=== PATIENT | male | born 1965 | race African-American/Black ===

== ENCOUNTER 2017-06-08 13:00 | Inpatient (IN) | payer OTHER ==
[2017-06-08 13:23] VITALS: BMI 29.0
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
[2017-06-08] MEDS ORDERED: LOPERAMIDE HCL 2 MG CAPSULE PO PRN (16:23)
[2017-06-08] MEDS ORDERED: MAGNESIUM CITRATE 300 ML BOTTLE PO PRN (16:23)
[2017-06-08] MEDS ORDERED: NICOTINE POLACRILEX 2 MG GUM BC PRN (16:23)
[2017-06-08] MEDS ORDERED: MAGNESIUM HYDROX 2400MG/30ML ORAL SUSPENSION 30 ML CUP PO PRN (16:23)
[2017-06-08] MEDS ORDERED: chlordiazePOXIDE HCL 25 MG CAPSULE PO PRN (16:23)
[2017-06-08] MEDS ORDERED: hydrOXYzine PAMOATE 50 MG CAPSULE (FP) PO PRN (16:23)
[2017-06-08] MEDS ORDERED: chlordiazePOXIDE HCL 25 MG CAPSULE PO ONE (16:23)
[2017-06-08] MEDS ORDERED: guaiFENesin/D-METHORPHAN HB 10 ML UNIT-DOSE CUPS PO PRN (16:23)
[2017-06-08] MEDS ORDERED: ACETAMINOPHEN 325 MG TABLET (FP) PO PRN (16:23)
[2017-06-08] MEDS ORDERED: IBUPROFEN 400 MG TABLET (FP) PO PRN (16:23)
[2017-06-08] MEDS ORDERED: MAG HYDROX/AL HYDROX/SIMETH 30 ML UNIT-DOSE CUP PO PRN (16:23)
[2017-06-08] MEDS ORDERED: MENTHOL/PHENOL 1 EACH UD MM PRN (16:23)
[2017-06-08] MEDS ORDERED: P-EPHED 60MG/TRIPROLIDI 2.5MG TABLET PO PRN (16:23)
[2017-06-08] MEDS: chlordiazePOXIDE HCL 25 MG CAPSULE PO SCH ×2 (18:16→22:26)
--- NOTE | 2017-06-08 18:51 | PN ---
S Progress Note Note: RECEIVED NURSE INFORMED, PATIENT REFUSES PPD NEEDLE, CHEST X RAY PLACED
[2017-06-08] MEDS: BACITRACIN 0.9 GM PACKET TP SCH (22:26)
[2017-06-08] MEDS: THIAMINE HCL 100 MG TABLET (FP) PO SCH (22:26)
[2017-06-09] MEDS: chlordiazePOXIDE HCL 25 MG CAPSULE PO SCH ×4 (06:07→23:00)
[2017-06-09 09:49] LABS: BASOPHIL 0.7 % (0-2.0); EOSINOPHIL 4.1 % (0-4.5); MCHC 33.1 g/dl (32.0-35.9); MEAN CELL VOLUME 90.6 fl (80-96); NEUTROPHILS 45.6 % (42.8-82.8); PLATELET COUNT 244 K/MM3 (134-434); RDW 14.8 % (11.9-15.9); WHITE BLOOD COUNT 7.7 K/mm3 (4.0-10.0)
[2017-06-09 10:39] LABS: HIV 1 & 2 AB NEGATIVE; HIV 1 AGp24 NEGATIVE
[2017-06-09 10:50] LABS: ALBUMIN 3.4 g/dl (3.4-5.0); ANION GAP 9 (8-16); CO2 25 mmol/L (21-32); GLUCOSE,RANDOM 90 mg/dL (74-106); SGOT/AST 19 U/L (15-37); SGPT/ALT 26 U/L (12-78)
[2017-06-09 10:51] LABS: ALK PHOS 72 U/L (45-117); BILIRUBIN,TOTAL 0.3 mg/dL (0.2-1.0); CALCIUM 8.9 mg/dL (8.5-10.1); TOT PROT 6.6 g/dl (6.4-8.2)
--- NOTE | 2017-06-09 11:07 | PN ---
[facility] CIWA - CIWA Score Nausea/Vomitin Muscle Tremors: 3 Anxiety: 3 Agitation: 2 Paroxysmal Sweats: 1-Minimal Palms Moist Orientation: 0-Oriented Tacttile Disturbances: 1-Very Mild Itch/Numbness Auditory Disturbances: 1-Very Mild Visual Disturbances: 0-None Headache: 2-Mild CIWA-Ar Total Score: 16 BHS Progress Note (SOAP) Subjective: ALERT,IRRITABLE,ANXIOUS,INTERRUPTED SLEEP,PAIN IN THE UPPER MOLAR,GINGIVITIS Objective: 06/09/17 11:04 Vital Signs Temperature 96.8 F L 06/09/17 10:02 Pulse Rate 64 06/09/17 10:02 Respiratory Rate 18 06/09/17 10:02 Blood Pressure 129/75 06/09/17 10:02 O2 Sat by Pulse Oximetry (%) EKG NSR,INVERTED T IN 3,AVF Assessment: 06/09/17 11:05 WITHDRAWAL SYMPTOM Plan: CONTINUE DETOX,PEN VEE K 500 MGS PO Q 6 HRS FOR 7 DAYS,MOTRIN 600 MGS PO Q 6 HRS PRN FOR PAIN AND TOOTHACHE
[2017-06-09] MEDS: BACITRACIN 0.9 GM PACKET TP SCH ×2 (11:26→22:22)
[2017-06-09] MEDS: PRENATAL VITAMINS W/ FOLIC ACID TABLET (FP) PO SCH (11:26)
[2017-06-09] MEDS: PENICILLIN V POTASSIUM 500 MG TABLET PO SCH ×3 (11:27→23:30)
[2017-06-09] MEDS: IBUPROFEN 600 MG TABLET (FP) PO PRN ×2 (11:28→19:09)
--- NOTE | 2017-06-09 14:46 | CONSULT ---
[facility] Psychiatric Consult - Data Date of interview: 06/09/17 Admission source: [facility] Identifying data: Readmission to [facility] for this 51 y/o AA male seeking detox treatment on for alcohol and cocaine dependence.Patient is single, a father of two,domiciled,unemployed and supported on SSI benefits. Substance Abuse History: Patient confirms this [facility] report. Smoking Cessation. Smoking history: Current every day smoker. Have you smoked in the past 12 months: Yes. Aproximately how many cigarettes per day: 20. Cigars Per Day: 0. Hx Chewing Tobacco Use: No. Initiated information on smoking cessation: Yes. 'Breaking Loose' booklet given: 06/08/17 (GIVEN ON UNIT.). - Substance & Tx. History. Hx Alcohol Use: Yes. Hx Substance Use: Yes. Substance Use Type: Alcohol, Cocaine, Heroin. Hx Substance Use Treatment: Yes (Previous detox and Rehab admissions at [facility], 1 Rehab at [facility].). - Substances Abused. Cocaine. Route: Smoking. Frequency: Daily. Amount used: $100. Age of first use: 22. Date of Last Use: 06/07/17. Heroin. Route: Inhalation. Frequency: 3-6 times per week. Amount used: 1/2 bag. Age of first use: 48. Date of Last Use: 06/05/17. Alcohol-vodka/beer. Route: Oral. Frequency: Daily. Amount used: 2 pts./1-2 6 pks. Age of first use: 17. Date of Last Use : 06/08/17 Medical History: Significant for a history of scarlet fever,blindness (right eye ),heart murmur and hypercholesterolemia. Psychiatric History: Patient denies history of psychiatric hospitalizations of OPD care.Mr Ludwig states that he initially sought outpatient psychiatric care at the [facility] in [facility] to address recurrent dysphoria.Got referred to [facility] for detoxification treatment prior to enrollment in their OPD clinic.Patient denies previous treatment with psychotropic medications.No reported history of suicide attempts. Physical/Sexual Abuse/Trauma History: Patient denies. Additional Comment: Urine Drug Screen Results: MARION-Cocaine.Noted. Mental Status Exam - Mental Status Exam Alert and Oriented to: Time, Place, Person Cognitive Function: Good Patient Appearance: Well Groomed Mood: Nervous, Withdrawn, Apprehensive Affect: Mood Congruent Patient Behavior: Fatigued, Appropriate, Cooperative Speech Pattern: Clear Voice Loudness: Normal Thought Process: Intact, Goal Oriented Thought Disorder: Not Present Hallucinations: Denies Suicidal Ideation: Denies Homicidal Ideation: Denies Insight/Judgement: Poor Sleep: Well Appetite: Good Muscle strength/Tone: Normal Gait/Station: Normal Psychiatric Findings - Problem List ([place] 1, 2,3) (1) Alcohol dependence with uncomplicated withdrawal Current Visit: Yes Status: Acute (2) Cocaine dependence, uncomplicated Current Visit: Yes Status: Acute (3) Uncomplicated opioid dependence Current Visit: Yes Status: Acute (4) Nicotine dependence Current Visit: Yes Status: Acute Qualifiers: Nicotine product type: cigarettes Substance use status: uncomplicated Qualified Code(s): F17.210 - Nicotine dependence, cigarettes, uncomplicated (5) Substance induced mood disorder Current Visit: Yes Status: Suspected (6) Blind right eye Current Visit: Yes Status: Chronic (7) History of cardiac murmur Current Visit: Yes Status: Chronic (8) History of hypertension Current Visit: Yes Status: Suspected - Initial Treatment Plan Initial Treatment Plan: Psychoeducation.Detoxification.Observation.
[2017-06-09 17:45] LABS: URINE APPEARANCE SLCLOUDY; URINE BILIRUBIN NEGATIVE (NEGATIVE); URINE BLOOD 2+ (NEGATIVE); URINE COLOR YELLOW; URINE GLUCOSE (UA) NEGATIVE (NEGATIVE); URINE KETONE NEGATIVE (NEGATIVE); URINE NITRITE NEGATIVE (NEGATIVE); URINE PROTEIN NEGATIVE (NEGATIVE); URINE UROBILINOGEN NEGATIVE mg/dL (0.2-1.0)
[2017-06-09 17:54] LABS: URINE LEUK ESTERASE 3+ (NEGATIVE)
[2017-06-09 17:57] LABS: URINE BACTERIA FEW /hpf (NONE SEEN); URINE MUCUS RARE; URINE RBC 2 /hpf (0-3); URINE WBC 145 /hpf (3-5)
[2017-06-09] MEDS: THIAMINE HCL 100 MG TABLET (FP) PO SCH (22:22)
[2017-06-09] MEDS: diphenhydrAMINE HCL 50 MG CAPSULE PO PRN (22:23)
[2017-06-10] MEDS: PENICILLIN V POTASSIUM 500 MG TABLET PO SCH ×4 (05:55→23:19)
[2017-06-10] MEDS: chlordiazePOXIDE HCL 25 MG CAPSULE PO SCH ×2 (05:55→11:07)
[2017-06-10] MEDS: IBUPROFEN 600 MG TABLET (FP) PO PRN (05:56)
[2017-06-10] MEDS: PRENATAL VITAMINS W/ FOLIC ACID TABLET (FP) PO SCH (11:07)
[2017-06-10] MEDS: BACITRACIN 0.9 GM PACKET TP SCH ×2 (11:07→23:16)
--- NOTE | 2017-06-10 11:49 | PN ---
S CIWA - CIWA Score Nausea/Vomitin Muscle Tremors: 2 Anxiety: 3 Agitation: 2 Paroxysmal Sweats: 2 Orientation: 0-Oriented Tacttile Disturbances: 1-Very Mild Itch/Numbness Auditory Disturbances: 0-None Visual Disturbances: 0-None Headache: 2-Mild CIWA-Ar Total Score: 14 S Progress Note (SOAP) Subjective: sleeplessness, shakes,toothache Objective: 06/10/17 11:46 Vital Signs - 8 hr 06/10/17 06/10/17 06:45 10:00 Temperature 96.4 F L 97.2 F L Pulse Rate 53 L 60 Respiratory 18 18 Rate Blood Pressure 153/96 148/97 Laboratory Last Values WBC 7.7 K/mm3 (4.0-10.0) 06/09/17 07:00 RBC 4.74 M/mm3 (4.00-5.60) 06/09/17 07:00 Hgb 14.2 GM/dL (11.7-16.9) 06/09/17 07:00 Hct 43.0 % (35.4-49) 06/09/17 07:00 MCV 90.6 fl (80-96) 06/09/17 07:00 MCH 30.0 pg (25.7-33.7) 06/09/17 07:00 MCHC 33.1 g/dl (32.0-35.9) 06/09/17 07:00 RDW 14.8 % (11.9-15.9) 06/09/17 07:00 Plt Count 244 K/MM3 (134-434) 06/09/17 07:00 MPV 8.0 fl (7.5-11.1) 06/09/17 07:00 Neutrophils % 45.6 % (42.8-82.8) 06/09/17 07:00 Lymphocytes % 34.3 % (8-40) 06/09/17 07:00 Monocytes % 15.3 % (3.8-10.2) H 06/09/17 07:00 Eosinophils % 4.1 % (0-4.5) 06/09/17 07:00 Basophils % 0.7 % (0-2.0) 06/09/17 07:00 Sodium 140 mmol/L (136-145) 06/09/17 07:00 Potassium 3.9 mmol/L (3.5-5.1) 06/09/17 07:00 Chloride 106 mmol/L (98-107) 06/09/17 07:00 Carbon Dioxide 25 mmol/L (21-32) 06/09/17 07:00 Anion Gap 9 (8-16) 06/09/17 07:00 BUN 13 mg/dL (7-18) 06/09/17 07:00 Creatinine 1.0 mg/dL (0.7-1.3) 06/09/17 07:00 Creat Clearance w eGFR > 60 (>60) 06/09/17 07:00 Random Glucose 90 mg/dL (74-106) 06/09/17 07:00 Calcium 8.9 mg/dL (8.5-10.1) 06/09/17 07:00 Total Bilirubin 0.3 mg/dL (0.2-1.0) 06/09/17 07:00 AST 19 U/L (15-37) 06/09/17 07:00 ALT 26 U/L (12-78) 06/09/17 07:00 Alkaline Phosphatase 72 U/L (45-117) 06/09/17 07:00 Total Protein 6.6 g/dl (6.4-8.2) 06/09/17 07:00 Albumin 3.4 g/dl (3.4-5.0) 06/09/17 07:00 Urine Color Yellow 06/08/17 17:00 Urine Appearance Slcloudy 06/08/17 17:00 Urine pH 5.0 (5.0-8.0) 06/08/17 17:00 Ur Specific [place] 1.020 (1.005-1.025) 06/08/17 17:00 Urine Protein Negative (NEGATIVE) 06/08/17 17:00 Urine Glucose (UA) Negative (NEGATIVE) 06/08/17 17:00 Urine Ketones Negative (NEGATIVE) 06/08/17 17:00 Urine Blood 2+ (NEGATIVE) H 06/08/17 17:00 Urine Nitrite Negative (NEGATIVE) 06/08/17 17:00 Urine Bilirubin Negative (NEGATIVE) 06/08/17 17:00 Urine Urobilinogen Negative mg/dL (0.2-1.0) 06/08/17 17:00 Ur Leukocyte Esterase 3+ (NEGATIVE) H 06/08/17 17:00 Urine RBC 2 /hpf (0-3) 06/08/17 17:00 Urine WBC 145 /hpf (3-5) 06/08/17 17:00 Ur Epithelial Cells Rare /hpf (FEW) 06/08/17 17:00 Urine Bacteria Few /hpf (NONE SEEN) 06/08/17 17:00 Urine Mucus Rare 06/08/17 17:00 RPR Titer Nonreactive (NONREACTIVE) 06/09/17 07:00 Hepatitis C Antibody <0.1 s/co ratio (0.0-0.9) 06/09/17 08:30 HIV 1&2 Antibody Screen Negative 06/09/17 07:00 HIV P24 Antigen Negative 06/09/17 07:00 labs notes, positive leukocyte esterase, 2 + blood in urine Assessment: 06/10/17 11:47 withdrawal sx, infected tooth, possible uti Plan: continue detox, continue Pen VK, repeat UA
[2017-06-10] MEDS: chlordiazePOXIDE 5 MG CAPSULE PO SCH ×2 (18:23→23:16)
[2017-06-10] MEDS: THIAMINE HCL 100 MG TABLET (FP) PO SCH (23:16)
[2017-06-10] MEDS: diphenhydrAMINE HCL 50 MG CAPSULE PO PRN (23:17)
[2017-06-11] MEDS: chlordiazePOXIDE 5 MG CAPSULE PO SCH ×2 (06:03→10:54)
[2017-06-11] MEDS: PENICILLIN V POTASSIUM 500 MG TABLET PO SCH ×3 (06:04→17:43)
[2017-06-11] MEDS: IBUPROFEN 600 MG TABLET (FP) PO PRN (06:05)
--- NOTE | 2017-06-11 09:56 | EKG ---
Test Reason : Blood Pressure : / mmHG Vent. Rate : 076 BPM Atrial Rate : 076 BPM P-R Int : 164 ms QRS Dur : 096 ms QT Int : 426 ms P-R-T Axes : 039 024 -58 degrees QTc Int : 479 ms NORMAL SINUS RHYTHM VOLTAGE CRITERIA FOR LEFT VENTRICULAR HYPERTROPHY T WAVE ABNORMALITY, CONSIDER INFERIOR ISCHEMIA PROLONGED QT ABNORMAL ECG NO PREVIOUS ECGS AVAILABLE Confirmed by MD ALFREDO, CAROLYNE ([id number]) on 06/11/2017 9:56:18 AM Referred By: Confirmed By:CAROLYNE FUENTES MD
[2017-06-11] MEDS: BACITRACIN 0.9 GM PACKET TP SCH ×2 (10:54→22:40)
[2017-06-11] MEDS: PRENATAL VITAMINS W/ FOLIC ACID TABLET (FP) PO SCH (10:54)
[2017-06-11] MEDS: chlordiazePOXIDE HCL 10 MG CAPSULE PO SCH ×2 (17:42→22:40)
--- NOTE | 2017-06-11 19:28 | PN ---
BHS Progress Note (SOAP) Subjective: Sweating,interrupted sleep,restless. Objective: 06/11/17 19:27 Vital Signs - 8 hr 06/11/17 06/11/17 14:38 17:36 Temperature 99.0 F 97.9 F Pulse Rate 74 71 Respiratory 18 18 Rate Blood Pressure 123/91 122/74 Laboratory Last Values WBC 7.7 K/mm3 (4.0-10.0) 06/09/17 07:00 RBC 4.74 M/mm3 (4.00-5.60) 06/09/17 07:00 Hgb 14.2 GM/dL (11.7-16.9) 06/09/17 07:00 Hct 43.0 % (35.4-49) 06/09/17 07:00 MCV 90.6 fl (80-96) 06/09/17 07:00 MCH 30.0 pg (25.7-33.7) 06/09/17 07:00 MCHC 33.1 g/dl (32.0-35.9) 06/09/17 07:00 RDW 14.8 % (11.9-15.9) 06/09/17 07:00 Plt Count 244 K/MM3 (134-434) 06/09/17 07:00 MPV 8.0 fl (7.5-11.1) 06/09/17 07:00 Neutrophils % 45.6 % (42.8-82.8) 06/09/17 07:00 Lymphocytes % 34.3 % (8-40) 06/09/17 07:00 Monocytes % 15.3 % (3.8-10.2) H 06/09/17 07:00 Eosinophils % 4.1 % (0-4.5) 06/09/17 07:00 Basophils % 0.7 % (0-2.0) 06/09/17 07:00 Sodium 140 mmol/L (136-145) 06/09/17 07:00 Potassium 3.9 mmol/L (3.5-5.1) 06/09/17 07:00 Chloride 106 mmol/L (98-107) 06/09/17 07:00 Carbon Dioxide 25 mmol/L (21-32) 06/09/17 07:00 Anion Gap 9 (8-16) 06/09/17 07:00 BUN 13 mg/dL (7-18) 06/09/17 07:00 Creatinine 1.0 mg/dL (0.7-1.3) 06/09/17 07:00 Creat Clearance w eGFR > 60 (>60) 06/09/17 07:00 Random Glucose 90 mg/dL (74-106) 06/09/17 07:00 Calcium 8.9 mg/dL (8.5-10.1) 06/09/17 07:00 Total Bilirubin 0.3 mg/dL (0.2-1.0) 06/09/17 07:00 AST 19 U/L (15-37) 06/09/17 07:00 ALT 26 U/L (12-78) 06/09/17 07:00 Alkaline Phosphatase 72 U/L (45-117) 06/09/17 07:00 Total Protein 6.6 g/dl (6.4-8.2) 06/09/17 07:00 Albumin 3.4 g/dl (3.4-5.0) 06/09/17 07:00 Urine Color Yellow 06/08/17 17:00 Urine Appearance Slcloudy 06/08/17 17:00 Urine pH 5.0 (5.0-8.0) 06/08/17 17:00 Ur Specific [place] 1.020 (1.005-1.025) 06/08/17 17:00 Urine Protein Negative (NEGATIVE) 06/08/17 17:00 Urine Glucose (UA) Negative (NEGATIVE) 06/08/17 17:00 Urine Ketones Negative (NEGATIVE) 06/08/17 17:00 Urine Blood 2+ (NEGATIVE) H 06/08/17 17:00 Urine Nitrite Negative (NEGATIVE) 06/08/17 17:00 Urine Bilirubin Negative (NEGATIVE) 06/08/17 17:00 Urine Urobilinogen Negative mg/dL (0.2-1.0) 06/08/17 17:00 Ur Leukocyte Esterase 3+ (NEGATIVE) H 06/08/17 17:00 Urine RBC 2 /hpf (0-3) 06/08/17 17:00 Urine WBC 145 /hpf (3-5) 06/08/17 17:00 Ur Epithelial Cells Rare /hpf (FEW) 06/08/17 17:00 Urine Bacteria Few /hpf (NONE SEEN) 06/08/17 17:00 Urine Mucus Rare 06/08/17 17:00 RPR Titer Nonreactive (NONREACTIVE) 06/09/17 07:00 Hepatitis C Antibody <0.1 s/co ratio (0.0-0.9) 06/09/17 08:30 HIV 1&2 Antibody Screen Negative 06/09/17 07:00 HIV P24 Antigen Negative 06/09/17 07:00 labs noted, repeat u/a pending Assessment: 06/11/17 19:28 Withdrawal sx. Plan: Continue detox
[2017-06-11] MEDS: diphenhydrAMINE HCL 50 MG CAPSULE PO PRN (22:40)
[2017-06-11] MEDS: THIAMINE HCL 100 MG TABLET (FP) PO SCH (22:40)
[2017-06-12] MEDS: PENICILLIN V POTASSIUM 500 MG TABLET PO SCH ×5 (01:15→23:04)
[2017-06-12] MEDS: chlordiazePOXIDE HCL 10 MG CAPSULE PO SCH ×2 (05:46→10:55)
[2017-06-12] MEDS ORDERED: cloNIDine HCL 0.1 MG TABLET PO ONE (09:45)
[2017-06-12 10:19] LABS: URINE APPEARANCE CLEAR; URINE BILIRUBIN NEGATIVE (NEGATIVE); URINE BLOOD NEGATIVE (NEGATIVE); URINE COLOR LTYELLOW; URINE GLUCOSE (UA) NEGATIVE (NEGATIVE); URINE KETONE NEGATIVE (NEGATIVE); URINE NITRITE NEGATIVE (NEGATIVE); URINE PROTEIN NEGATIVE (NEGATIVE); URINE UROBILINOGEN NEGATIVE mg/dL (0.2-1.0)
[2017-06-12 10:28] LABS: URINE LEUK ESTERASE 2+ (NEGATIVE)
[2017-06-12 10:30] LABS: URINE RBC <1 /hpf (0-3); URINE WBC 1 /hpf (3-5)
[2017-06-12] MEDS: BACITRACIN 0.9 GM PACKET TP SCH ×2 (10:55→23:04)
[2017-06-12] MEDS: PRENATAL VITAMINS W/ FOLIC ACID TABLET (FP) PO SCH (10:55)
--- NOTE | 2017-06-12 11:47 | PN ---
BHS Progress Note (SOAP) Subjective: Sweating,interrupted sleep,restless Objective: 06/12/17 11:46 Vital Signs - 8 hr 06/12/17 06/12/17 06:00 09:52 Temperature 97.9 F 97.9 F Pulse Rate 76 82 Respiratory 18 16 Rate Blood Pressure 115/65 146/100 Laboratory Last Values WBC 7.7 K/mm3 (4.0-10.0) 06/09/17 07:00 RBC 4.74 M/mm3 (4.00-5.60) 06/09/17 07:00 Hgb 14.2 GM/dL (11.7-16.9) 06/09/17 07:00 Hct 43.0 % (35.4-49) 06/09/17 07:00 MCV 90.6 fl (80-96) 06/09/17 07:00 MCH 30.0 pg (25.7-33.7) 06/09/17 07:00 MCHC 33.1 g/dl (32.0-35.9) 06/09/17 07:00 RDW 14.8 % (11.9-15.9) 06/09/17 07:00 Plt Count 244 K/MM3 (134-434) 06/09/17 07:00 MPV 8.0 fl (7.5-11.1) 06/09/17 07:00 Neutrophils % 45.6 % (42.8-82.8) 06/09/17 07:00 Lymphocytes % 34.3 % (8-40) 06/09/17 07:00 Monocytes % 15.3 % (3.8-10.2) H 06/09/17 07:00 Eosinophils % 4.1 % (0-4.5) 06/09/17 07:00 Basophils % 0.7 % (0-2.0) 06/09/17 07:00 Sodium 140 mmol/L (136-145) 06/09/17 07:00 Potassium 3.9 mmol/L (3.5-5.1) 06/09/17 07:00 Chloride 106 mmol/L (98-107) 06/09/17 07:00 Carbon Dioxide 25 mmol/L (21-32) 06/09/17 07:00 Anion Gap 9 (8-16) 06/09/17 07:00 BUN 13 mg/dL (7-18) 06/09/17 07:00 Creatinine 1.0 mg/dL (0.7-1.3) 06/09/17 07:00 Creat Clearance w eGFR > 60 (>60) 06/09/17 07:00 Random Glucose 90 mg/dL (74-106) 06/09/17 07:00 Calcium 8.9 mg/dL (8.5-10.1) 06/09/17 07:00 Total Bilirubin 0.3 mg/dL (0.2-1.0) 06/09/17 07:00 AST 19 U/L (15-37) 06/09/17 07:00 ALT 26 U/L (12-78) 06/09/17 07:00 Alkaline Phosphatase 72 U/L (45-117) 06/09/17 07:00 Total Protein 6.6 g/dl (6.4-8.2) 06/09/17 07:00 Albumin 3.4 g/dl (3.4-5.0) 06/09/17 07:00 Urine Color Ltyellow 06/12/17 08:00 Urine Appearance Clear 06/12/17 08:00 Urine pH 7.0 (5.0-8.0) D 06/12/17 08:00 Ur Specific [place] 1.020 (1.005-1.025) 06/08/17 17:00 Urine Protein Negative (NEGATIVE) 06/12/17 08:00 Urine Glucose (UA) Negative (NEGATIVE) 06/12/17 08:00 Urine Ketones Negative (NEGATIVE) 06/12/17 08:00 Urine Blood Negative (NEGATIVE) 06/12/17 08:00 Urine Nitrite Negative (NEGATIVE) 06/12/17 08:00 Urine Bilirubin Negative (NEGATIVE) 06/12/17 08:00 Urine Urobilinogen Negative mg/dL (0.2-1.0) 06/12/17 08:00 Ur Leukocyte Esterase 2+ (NEGATIVE) H 06/12/17 08:00 Urine RBC <1 /hpf (0-3) 06/12/17 08:00 Urine WBC 1 /hpf (3-5) 06/12/17 08:00 Ur Epithelial Cells Rare /hpf (FEW) 06/12/17 08:00 Urine Bacteria Few /hpf (NONE SEEN) 06/08/17 17:00 Urine Mucus Rare 06/08/17 17:00 RPR Titer Nonreactive (NONREACTIVE) 06/09/17 07:00 Hepatitis C Antibody <0.1 s/co ratio (0.0-0.9) 06/09/17 08:30 HIV 1&2 Antibody Screen Negative 06/09/17 07:00 HIV P24 Antigen Negative 06/09/17 07:00 labs noted Assessment: 06/12/17 11:47 Withdrawal sx. Plan: Continue detox
[2017-06-12] MEDS: THIAMINE HCL 100 MG TABLET (FP) PO SCH (23:04)
[2017-06-12] MEDS: diphenhydrAMINE HCL 50 MG CAPSULE PO PRN (23:05)
[2017-06-13] MEDS: PENICILLIN V POTASSIUM 500 MG TABLET PO SCH (05:44)
--- NOTE | 2017-06-13 08:52 | DS ---
[facility] Detox Discharge Summary Admission Date: 06/08/17 Discharge Date: 06/13/17 - History Present History: Alcohol Dependence, Cannabis Dependence, Cocaine Dependence, Opioid Dependence, Pcp Dependence Pertinent Past History: nicotine dependence, anxiety, insomnia, depression - Physical Exam Results Vital Signs: Vital Signs Temperature 97.7 F 06/13/17 06:45 Pulse Rate 78 06/13/17 06:45 Respiratory Rate 16 06/13/17 06:45 Blood Pressure 134/81 06/13/17 06:45 O2 Sat by Pulse Oximetry (%) Laboratory Tests 06/08/17 06/09/17 06/09/17 17:00 07:00 07:00 WBC RBC Hgb Hct MCV MCH MCHC RDW Plt Count MPV Neutrophils % Lymphocytes % Monocytes % Eosinophils % Basophils % Sodium 140 Potassium 3.9 Chloride 106 Carbon Dioxide 25 Anion Gap 9 BUN 13 Creatinine 1.0 Creat Clearance w eGFR > 60 Random Glucose 90 Calcium 8.9 Total Bilirubin 0.3 AST 19 ALT 26 Alkaline Phosphatase 72 Total Protein 6.6 Albumin 3.4 Urine Color Yellow Urine Appearance Slcloudy Urine pH 5.0 Ur Specific [place] 1.020 Urine Protein Negative Urine Glucose (UA) Negative Urine Ketones Negative Urine Blood 2+ H Urine Nitrite Negative Urine Bilirubin Negative Urine Urobilinogen Negative Ur Leukocyte Esterase 3+ H Urine RBC 2 Urine WBC 145 Ur Epithelial Cells Rare Urine Bacteria Few Urine Mucus Rare RPR Titer Nonreactive Hepatitis C Antibody HIV 1&2 Antibody Screen HIV P24 Antigen 06/09/17 06/09/17 06/09/17 07:00 07:00 08:30 WBC 7.7 RBC 4.74 Hgb 14.2 Hct 43.0 MCV 90.6 MCH 30.0 MCHC 33.1 RDW 14.8 Plt Count 244 MPV 8.0 Neutrophils % 45.6 Lymphocytes % 34.3 Monocytes % 15.3 H Eosinophils % 4.1 Basophils % 0.7 Sodium Potassium Chloride Carbon Dioxide Anion Gap BUN Creatinine Creat Clearance w eGFR Random Glucose Calcium Total Bilirubin AST ALT Alkaline Phosphatase Total Protein Albumin Urine Color Urine Appearance Urine pH Ur Specific [place] Urine Protein Urine Glucose (UA) Urine Ketones Urine Blood Urine Nitrite Urine Bilirubin Urine Urobilinogen Ur Leukocyte Esterase Urine RBC Urine WBC Ur Epithelial Cells Urine Bacteria Urine Mucus RPR Titer Hepatitis C Antibody <0.1 HIV 1&2 Antibody Screen Negative HIV P24 Antigen Negative 06/12/17 08:00 WBC RBC Hgb Hct MCV MCH MCHC RDW Plt Count MPV Neutrophils % Lymphocytes % Monocytes % Eosinophils % Basophils % Sodium Potassium Chloride Carbon Dioxide Anion Gap BUN Creatinine Creat Clearance w eGFR Random Glucose Calcium Total Bilirubin AST ALT Alkaline Phosphatase Total Protein Albumin Urine Color Ltyellow Urine Appearance Clear Urine pH 7.0 D Ur Specific [place] 1.020 Urine Protein Negative Urine Glucose (UA) Negative Urine Ketones Negative Urine Blood Negative Urine Nitrite Negative Urine Bilirubin Negative Urine Urobilinogen Negative Ur Leukocyte Esterase 2+ H Urine RBC <1 Urine WBC 1 Ur Epithelial Cells Rare Urine Bacteria Urine Mucus RPR Titer Hepatitis C Antibody HIV 1&2 Antibody Screen HIV P24 Antigen Pertinent Admission Physical Exam Findings: withdrawal sx - Treatment Hospital Course: Detox Protocol Followed, Detoxed Safely, Responded well, Discharged Condition Good, Rehab Referral Accepted - Medication Discharge Medications: Ambulatory Orders NK [No Known Home Medication] 06/08/17 - Diagnosis (1) Alcohol dependence with uncomplicated withdrawal Current Visit: Yes Status: Chronic (2) Cocaine dependence, uncomplicated Current Visit: Yes Status: Chronic (3) Nicotine dependence Current Visit: Yes Status: Chronic Qualifiers: Nicotine product type: cigarettes Substance use status: uncomplicated Qualified Code(s): F17.210 - Nicotine dependence, cigarettes, uncomplicated (4) Blind right eye Current Visit: Yes Status: Chronic (5) History of cardiac murmur Current Visit: Yes Status: Chronic (6) Hypercholesterolemia Current Visit: Yes Status: Chronic (7) Substance induced mood disorder Current Visit: Yes Status: Suspected (8) Acquired dyslexia Current Visit: No Status: Chronic (9) Cannabis dependence in early, early partial, sustained full, or sustained partial remission Current Visit: No Status: Acute (10) PCP dependence Current Visit: Yes Status: Chronic - AMA Did Patient Leave Against Medical Advice: No
[2017-06-13 10:30] VITALS: BP 133/91; PULSE 76; TEMP 98.4
== END 2017-06-13 10:56 | disposition home or self-care (01) | DRG 897 ==
LOC: YASAS 13:00 → Y6N 15:55
PROVIDERS: ADMIT Internal Medicine Addiction Medicine; ATTEND Internal Medicine Addiction Medicine
PROC: HZ2ZZZZ Detoxification Services for Substance Abuse Treatment (ICD-10-PCS; principal; 2017-06-08)
DX: F10.230 Alcohol dependence with withdrawal, uncomplicated (principal); F14.20 Cocaine dependence, uncomplicated; F16.20 Hallucinogen dependence, uncomplicated; F12.21 Cannabis dependence, in remission; F17.210 Nicotine dependence, cigarettes, uncomplicated; F19.24 Other psychoactive substance dependence with psychoactive substance-induced mood disorder; H54.41 Blindness, right eye, normal vision left eye; R01.1 Cardiac murmur, unspecified; E78.00 Pure hypercholesterolemia, unspecified; R48.0 Dyslexia and alexia; R31.9 Hematuria, unspecified; R82.99 Other abnormal findings in urine; Z86.79 Personal history of other diseases of the circulatory system
CPT/HCPCS: 36415; 71020-TC; 80053; 81003; 81015; 85025; 86593; 86803; 87389; 93005; 93010